=== PATIENT | female | born 1990 | race Caucasian/White ===

== ENCOUNTER 2018-12-08 03:57 | Emergency (ER) | payer OTHER ==
[~2018-12-08] VITALS: Ht 170.2 cm; Wt 57.0 kg
[2018-12-08 04:05] VITALS: BP 128/80
[2018-12-08] MEDS ORDERED: ACETAMINOPHEN 500 MG TABLET ONE (04:57)
[2018-12-08] MEDS ORDERED: ACETAMINOPHEN 500 MG TABLET PO ONE (05:00)
[2018-12-08] MEDS ORDERED: ONDANSETRON ODT 4 MG PO ONE (05:30)
== END 2018-12-08 05:43 | disposition home or self-care (01) ==
LOC: ED 05:41
DX: O26.891 Other specified pregnancy related conditions, first trimester (principal); K11.21 Acute sialoadenitis; Z3A.12 12 weeks gestation of pregnancy
CPT/HCPCS: 99283

== ENCOUNTER 2019-09-21 08:01 | Outpatient (CLI) | payer OTHER | END 2019-09-21 23:59 | disposition home or self-care (01) | LOC: CVU 08:01 | PROVIDERS: ATTEND Internal Medicine Cardiovascular Disease | DX: Z86.711 Personal history of pulmonary embolism (principal); I34.0 Nonrheumatic mitral (valve) insufficiency | CPT/HCPCS: 93306 ==